=== PATIENT | male | born 1960 | race Caucasian/White ===

== ENCOUNTER 2016-08-04 06:22 | Emergency (ER) | payer BC, OTHER ==
[2016-08-04 06:26] VITALS: BP 136/91
--- NOTE | 2016-08-04 06:43 | EDM.PDOC ---
<Hamzah Fairbanks - Last Filed: 08/04/16 06:55> ED HISTORY OF PRESENT ILLNESS - General Chief Complaint: Respiratory Problem Stated Complaint: COUGH Time Seen by Provider: 08/04/16 06:35 Source of Information: Reports: Patient History Limitations: Reports: No limitations - History of Present Illness INITIAL COMMENTS - FREE TEXT/NARRATIVE: 56 yo white male c/o uri symptoms and this am coughed up blood Symptom Onset Date: 08/04/16 Symptom Onset Time: 22:00 Timing/Duration: Reports: Hour(s):, Gradual onset Location, General: Reports: chest Associated Symptoms (General): Reports: other (sinus congestion) - Related Data Allergies/ADRs: Allergies Allergy/AdvReac Type Severity Reaction Status Date / Time penicillin Allergy Swelling Verified 08/04/16 06:26 Home Meds: Home Meds Aspirin [Adult Low Dose Aspirin EC] 81 mg PO ASDIRECTED 02/06/15 [History] Fenofibrate,Micronized [Fenofibrate] 134 mg PO DAILY 02/06/15 [History] Lisinopril [Lisinopril] 20 mg PO DAILY 02/06/15 [History] Past Medical History Cardiovascular History: Reports: Hypertension - Past Surgical History HEENT Surgical History: Reports: Tonsillectomy GI Surgical History: Reports: Appendectomy, Cholecystectomy Social & Family History - Tobacco Use Smoking Status *Q: Former Smoker Month Tobacco Last Used: 1994 Second Hand Smoke Exposure: No - Alcohol Use Days Per Week of Alcohol Use: 1 Number of Drinks Per Day: 2 Total Drinks Per Week: 2 - Recreational Drug Use Recreational Drug Use: No ED ROS GENERAL - Review of Systems Review Of Systems: See Below Constitutional: Reports: no symptoms HEENT: Reports: Sinus problem Respiratory: Reports: Cough, Hemoptysis Cardiovascular: Reports: No symptoms Endocrine: Reports: no symptoms GI/Abdominal: Reports: No symptoms : Reports: no symptoms Musculoskeletal: Reports: no symptoms Skin: Reports: no symptoms Neurological: Reports: No Symptoms Psychiatric: Reports: No symptoms Hematologic/Lymphatic: Reports: no symptoms Immunologic: Reports: no symptoms ED EXAM, GENERAL - Physical Exam Exam: See Below Exam Limited By: No limitations General Appearance: alert, WD/WN, no apparent distress Eye Exam: bilateral eye: PERRL Ears: normal external exam, normal canal, normal TMs Ear Exam: bilateral ear: TM normal Nose: normal inspection, normal mucosa, no blood Throat/Mouth: Normal inspection, Normal lips, Normal teeth Head: atraumatic, normocephalic Neck: normal inspection, supple, non-tender Respiratory/Chest: no respiratory distress, lungs clear, normal breath sounds Cardiovascular: normal peripheral pulses, regular rate, rhythm GI/Abdominal: normal bowel sounds, soft, non tender Back Exam: normal inspection Extremities: normal inspection, normal range of motion Neurological: alert, oriented, CN II-XII intact Psychiatric: normal affect Skin Exam: Warm, Dry Lymphatic: no adenopathy Course - Vital Signs Last Recorded V/S: Last Vital Signs Temp 96.1 F 08/04/16 06:24 Pulse 58 L 08/04/16 06:24 Resp 20 08/04/16 06:24 BP 136/91 H 08/04/16 06:24 Pulse Ox 99 08/04/16 06:24 - Orders/Labs/Meds Orders: Active Orders 24 hr Category Date Time Status RT Aerosol Therapy [RC] ASDIRECTED Care 08/04/16 06:53 Active CULTURE STREP A CONFIRMATION [] Stat Lab 08/04/16 06:25 Results STREP SCRN A RAPID W CULT CONF [] Stat Lab 08/04/16 06:25 Results Labs: Laboratory Tests 08/04/16 08/04/16 Range/Units 06:52 06:52 WBC 5.9 (5.0-10.0) 10^3/uL RBC 4.94 (4.6-6.2) 10^6/uL Hgb 15.1 (14.0-18.0) g/dL Hct 42.7 (40.0-54.0) % MCV 86.4 (80-100) fL MCH 30.6 (27.0-34.0) pg MCHC 35.4 H (33.0-35.0) g/dL Plt Count 216 (150-450) 10^3/uL Neut % (Auto) 33.5 L (42.2-75.2) % Lymph % (Auto) 43.7 (20.5-50.1) % [place] % (Auto) 21.8 H (2-8) % Eos % (Auto) 1.0 (1.0-3.0) % Baso % (Auto) 0.0 (0.0-1.0) % Add Manual Diff Yes Neutrophils % (Manual) 24 % Lymphocytes % (Manual) 57 % Atypical Lymphs % 3 % Monocytes % (Manual) 13 % Eosinophils % (Manual) 3 % PT 9.8 (9.0-12.0) SEC INR 1.0 (0.9-1.2) Meds: Medications Discontinued Medications Generic Name Dose Route Start Last Admin Trade Name Tierney PRN Reason Stop Dose Admin Albuterol/Ipratropium 3 ml 08/04/16 06:53 Duoneb 3.0-0.5 Mg/3 Ml NEB 08/04/16 06:54 ONETIME ONE Departure - Departure Disposition: Home, Self-Care 01 Clinical Impression: Cough with hemoptysis Instructions: Hemoptysis Forms: ED Department Discharge Additional Instructions: Continue your z-pack until complete as prescribed by your PCP. Keep your nasal passages moist with saline nasal spray a few times a day. Take claritin or zyrtec and flonase to help decrease allergies. Follow up with your PCP in2-3 days for re-evaluation. Return for any worsening symptoms. <Weston Heard - Last Filed: 08/04/16 07:40> Course - Radiology Interpretation Free Text/Narrative:: No acute findings on x-ray. - Re-Assessments/Exams Free Text/Narrative Re-Assessment/Exam: 08/04/16 07:35 Spoke with family and patient who was concerned that the amount of blood he coughed up. States that he saw his PCP who started him on a z-pack over the weekend and he felt like last night he was better and slept better. Encouraged to push fluids, keep nasal passages moist with saline spray and take antihistamine for any allergic type symptoms. Departure - Departure Time of Disposition: 07:36 Condition: good
[2016-08-04] MEDS ORDERED: Albuterol/Ipratropium 3.0-0.5 MG/3 ML Neb Soln NEB ONE (06:53)
== END 2016-08-04 07:50 | disposition home or self-care (01) ==
LOC: DL.ED 06:22
DX: R04.2 Hemoptysis (principal); R09.81 Nasal congestion; Z79.82 Long term (current) use of aspirin; Z79.899 Other long term (current) drug therapy; I10 Essential (primary) hypertension; Z87.891 Personal history of nicotine dependence
CPT/HCPCS: 36415; 71020; 85025; 85610; 87081; 87430; 94640; 99284

== ENCOUNTER 2017-06-11 12:07 | Emergency (ER) | payer BC, OTHER ==
[2017-06-11 12:28] VITALS: BP 157/86
[2017-06-11] MEDS ORDERED: methylPREDNISolone Sodium Succinate 125 MG/2 ML SDV IM ONE (13:10)
--- NOTE | 2017-06-11 13:54 | EDM.PDOC ---
Scribed by Mary Meng 06/11/17 1354 for Jair Wallis MD ED HPI GENERAL MEDICAL PROBLEM - General Chief Complaint: Respiratory Problem Stated Complaint: [id number] BAD COLD Time Seen by Provider: 06/11/17 12:35 Source of Information: Reports: Patient, RN, RN Notes Reviewed History Limitations: Reports: No Limitations - History of Present Illness INITIAL COMMENTS - FREE TEXT/NARRATIVE: Patient complains of 1week productive cough and low grade fever and chills. Admits to generalized myalagis and headache Denies, nausea, vomiting, diarrhea, chills, sore throat or rash. was hospitalized last week for pneumonia. Duration: Getting Worse Location: Reports: Chest, Other (runny nose) Quality: Reports: Ache Severity: Severe Improves with: Reports: None Worsens with: Reports: None Associated Symptoms: Reports: No Other Symptoms Bilateral Chest Pain Score (Numeric/FACES): 8 - Related Data Allergies Allergy/AdvReac Type Severity Reaction Status Date / Time penicillin Allergy Swelling Verified 08/04/16 06:26 Home Meds: Home Meds Aspirin [Adult Low Dose Aspirin EC] 81 mg PO ASDIRECTED 02/06/15 [History] Fenofibrate,Micronized [Fenofibrate] 134 mg PO DAILY 02/06/15 [History] Lisinopril [Lisinopril] 20 mg PO DAILY 02/06/15 [History] Past Medical History Cardiovascular History: Reports: Hypertension - Past Surgical History HEENT Surgical History: Reports: Tonsillectomy GI Surgical History: Reports: Appendectomy, Cholecystectomy Social & Family History - Tobacco Use Smoking Status *Q: Never Smoker Month Tobacco Last Used: 1994 Second Hand Smoke Exposure: No - Caffeine Use Caffeine Use: Reports: Soda - Alcohol Use Days Per Week of Alcohol Use: 1 Number of Drinks Per Day: 2 Total Drinks Per Week: 2 - Recreational Drug Use Recreational Drug Use: No ED ROS GENERAL - Review of Systems Review Of Systems: ROS reveals no pertinent complaints other than HPI. ED EXAM, GENERAL - Physical Exam Exam: See Below Exam Limited By: No Limitations General Appearance: Alert, WD/WN, No Apparent Distress Eye Exam: Bilateral Eye: Normal Inspection Ears: Normal External Exam, Normal Canal, Hearing Grossly Normal, Normal TMs Nose: Other (mild nasal congestion with clear mucus drainage.) Throat/Mouth: Normal Inspection, Normal Lips, Normal Teeth, Normal Gums, Normal Oropharynx, Normal Voice, No Airway Compromise Head: Atraumatic, Normocephalic Neck: Other (no nuchal rigidity.) Respiratory/Chest: No Respiratory Distress, No Accessory Muscle Use, Other ( moist cough) Cardiovascular: Normal Peripheral Pulses, Regular Rate, Rhythm, No Edema, No Gallop, No JVD, No Murmur, No Rub GI/Abdominal: Normal Bowel Sounds, Soft, Non-Tender, No Organomegaly, No Distention, No Abnormal Bruit, No Mass (Male) Exam: Deferred Rectal (Males) Exam: Deferred Back Exam: Normal Inspection, Full Range of Motion, NT Extremities: Normal Inspection, Normal Range of Motion, Non-Tender, Normal Capillary Refill, No Pedal Edema Neurological: Alert, Oriented, CN II-XII Intact, Normal Cognition, Normal Gait, Normal Reflexes, No Motor/Sensory Deficits Psychiatric: Normal Affect Skin Exam: Warm, Dry, Intact, Normal Color, No Rash Lymphatic: No Adenopathy Course - Vital Signs Last Recorded V/S: Last Vital Signs Temp 37.4 C 06/11/17 12:26 Pulse 67 06/11/17 12:26 Resp 16 06/11/17 12:26 BP 157/86 H 06/11/17 12:26 Pulse Ox 98 06/11/17 12:26 - Orders/Labs/Meds Orders: Active Orders 24 hr Category Date Time Status CULTURE STREP A CONFIRMATION [] Stat Lab 06/11/17 12:41 Results STREP SCRN A RAPID W CULT CONF [] Stat Lab 06/11/17 12:41 Results Labs: Rapid strep:Negative. Influzenza A: Positive. Influenza B: Negative Meds: Medications Discontinued Medications Generic Name Dose Route Start Last Admin Trade Name Freq PRN Reason Stop Dose Admin Methylprednisolone Sodium Succinate 125 mg 06/11/17 13:10 06/11/17 13:26 Solu-Medrol IM 06/11/17 13:11 125 mg ONETIME ONE Administration - Radiology Interpretation Free Text/Narrative:: Chest x-ray: No acute abnormality. See rad report. Departure - Departure Time of Disposition: 13:20 Disposition: Home, Self-Care 01 Condition: Fair Clinical Impression: Influenza A - Discharge Information Instructions: Influenza, Adult, [id number] Referrals: Nikkie Morgan PA [Primary Care Provider] - Forms: ED Department Discharge, ED Department Discharge Additional Instructions: RX: Prednisone 20mg. RX: Phenergan with codeine. Drink plenty of fluids. Rest. Follow up in clinic if not improving in 7-10 days. Return to ER if any respiratory difficulties develop. - My Orders Last 24 Hours: My Active Orders 06/11/17 12:41 CULTURE STREP A CONFIRMATION [RM] Stat STREP SCRN A RAPID W CULT CONF [RM] Stat - Assessment/Plan Last 24 Hours: My Active Orders 06/11/17 12:41 CULTURE STREP A CONFIRMATION [RM] Stat STREP SCRN A RAPID W CULT CONF [RM] Stat I have read and agree with the documentation that has been completed regarding this visit. By signing this record, I attest that the documentation was completed in my physical presence and is an accurate record of the encounter.
== END 2017-06-11 13:37 | disposition home or self-care (01) ==
LOC: DL.ED 12:07
DX: J10.1 Influenza due to other identified influenza virus with other respiratory manifestations (principal); I10 Essential (primary) hypertension; Z79.899 Other long term (current) drug therapy; Z88.0 Allergy status to penicillin
CPT/HCPCS: 71046; 87081; 87430; 87804; 96372; 99284; J2930

== ENCOUNTER 2018-08-03 19:50 | Emergency (ER) | payer BC ==
[2018-08-03] MEDS ORDERED: Acetaminophen/HYDROcodone 325-10 MG Tab PO ONE (19:51)
[2018-08-03 19:56] VITALS: BP 147/85
--- NOTE | 2018-08-03 20:11 | EDM.PDOC ---
ED HPI GENERAL MEDICAL PROBLEM - General Chief Complaint: Lower Extremity Injury/Pain Stated Complaint: FOOT PAIN Time Seen by Provider: 08/03/18 20:08 Source of Information: Reports: Patient History Limitations: Reports: No Limitations - History of Present Illness INITIAL COMMENTS - FREE TEXT/NARRATIVE: 3 weeks h/o left heel pain saw PMD thought was infection Tx with ABX did get better but gradually pain return only when steps onto foot. otherwise it's fine. 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 Left Feet Pain Score (Numeric/FACES): 10 - Related Data Allergies Allergy/AdvReac Type Severity Reaction Status Date / Time penicillin Allergy Swelling Verified 08/04/16 06:26 Home Meds: Home Meds Aspirin [Adult Low Dose Aspirin EC] 81 mg PO ASDIRECTED 02/06/15 [History] Fenofibrate,Micronized [Fenofibrate] 134 mg PO DAILY 02/06/15 [History] Albuterol/Ipratropium [Combivent Respimat] 1 inh INH ASDIRECTED 08/03/18 [ History] Losartan Potassium 100 mg PO DAILY 08/03/18 [History] Past Medical History Cardiovascular History: Reports: Hypertension Respiratory History: Reports: Pneumonia, Recurrent - Past Surgical History HEENT Surgical History: Reports: Tonsillectomy GI Surgical History: Reports: Appendectomy, Cholecystectomy Social & Family History - Family History Family Medical History: Noncontributory - Tobacco Use Smoking Status *Q: Never Smoker - Caffeine Use Caffeine Use: Reports: Soda - Recreational Drug Use Recreational Drug Use: No Review of Systems - Review of Systems Review Of Systems: ROS reveals no pertinent complaints other than HPI. ED EXAM, GENERAL - Physical Exam Exam: See Below Exam Limited By: No Limitations General Appearance: Alert, WD/WN, No Apparent Distress Ears: Hearing Grossly Normal Throat/Mouth: Normal Voice, No Airway Compromise Head: Atraumatic Neck: Non-Tender, Full Range of Motion Respiratory/Chest: No Respiratory Distress Cardiovascular: Regular Rate, Rhythm GI/Abdominal: Soft, Non-Tender Extremities: Other (left heel no s/s cellutitis, no gross D/D, NV wnl, gait limited to pain) Neurological: Alert, Oriented, Normal Cognition, No Motor/Sensory Deficits Psychiatric: Normal Affect, Normal Mood Skin Exam: Warm, Dry, Normal Color Lymphatic: No Adenopathy Course - Vital Signs Last Recorded V/S: Last Vital Signs Temp 36.1 C 08/03/18 19:55 Pulse 73 08/03/18 19:55 Resp 18 08/03/18 19:55 BP 147/85 H 08/03/18 19:55 Pulse Ox 97 08/03/18 19:55 - Re-Assessments/Exams Free Text/Narrative Re-Assessment/Exam: 08/03/18 21:16 results discussed with pt who states he has appt with PMD tomorrow. Departure - Departure Time of Disposition: 21:18 Disposition: Home, Self-Care 01 Condition: Good Clinical Impression: Heel pain Qualifiers: Laterality: left Qualified Code(s): M79.672 - Pain in left foot - Discharge Information Instructions: Foot Pain Forms: ED Department Discharge Additional Instructions: 1) see family doctor tomorrow for PODIATRY REFERRAL for possible plantar wart to heel rx luisa smith x1
[2018-08-03] MEDS ORDERED: Acetaminophen/HYDROcodone 325-5 MG Tab ONE (21:20)
== END 2018-08-03 21:24 | disposition home or self-care (01) ==
LOC: DL.ED 19:50
DX: M79.672 Pain in left foot (principal); I10 Essential (primary) hypertension; Z79.82 Long term (current) use of aspirin; Z88.0 Allergy status to penicillin; Z79.899 Other long term (current) drug therapy
CPT/HCPCS: 73620; 99283; A9270

== ENCOUNTER 2019-05-07 15:54 | Emergency (ER) | payer BC ==
[2019-05-07] MEDS ORDERED: Nitroglycerin 0.4 MG Tab.SL SL ONE (16:29)
[2019-05-07 16:39] VITALS: BP 107/65; PULSE 64
[2019-05-07 16:42] LABS: ANION GAP 14.1; CHLORIDE,CL 103 mmol/L (101-111); SODIUM,NA 136 mmol/L (135-145)
[2019-05-07] MEDS ORDERED: Heparin Sodium 5,000 Units/ML Vial IVPUSH ONE (17:11)
[2019-05-07] MEDS ORDERED: Heparin Sodium/0.45% NaCl 25,000 UNITS/500 ML BAG IV SCH (17:15)
--- NOTE | 2019-05-25 11:42 | EDM.PDOC ---
Scribed by Mary Meng 05/07/191958 for May Ellison NP ED HPI GENERAL MEDICAL PROBLEM - General Chief Complaint: Chest Pain Stated Complaint: CRITICAL Time Seen by Provider: 05/07/19 16:18 Source of Information: Reports: Patient, Provider, RN, RN Notes Reviewed History Limitations: Reports: No Limitations - History of Present Illness INITIAL COMMENTS - FREE TEXT/NARRATIVE: patient presents to ER from the clinic with complaint of chest pain. 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 Patient states he ate lunch, and the pain did not improve so he went to the clinic. Patient relates chest pain 10/16. Denies any shortness of breath, nausea, vomiting. Patient denies any previous cardiovascular problems. Onset: Today, Sudden Duration: Constant, Getting Worse, Heavy Location: Reports: Chest Quality: Reports: Pressure, Stabbing Severity: Moderate Improves with: Reports: None Worsens with: Reports: None Associated Symptoms: Reports: No Other Symptoms - Related Data Allergies Allergy/AdvReac Type Severity Reaction Status Date / Time penicillin Allergy Swelling Verified 05/07/19 16:12 Home Meds: Home Meds Aspirin [Adult Low Dose Aspirin EC] 81 mg PO ASDIRECTED 02/06/15 [History] Fenofibrate,Micronized [Fenofibrate] 134 mg PO DAILY 02/06/15 [History] Albuterol/Ipratropium [Combivent Respimat] 1 inh INH ASDIRECTED 08/03/18 [ History] Losartan Potassium 100 mg PO DAILY 08/03/18 [History] Past Medical History Cardiovascular History: Reports: Hypertension Respiratory History: Reports: Pneumonia, Recurrent - Past Surgical History HEENT Surgical History: Reports: Tonsillectomy GI Surgical History: Reports: Appendectomy, Cholecystectomy Social & Family History - Family History Family Medical History: Noncontributory - Caffeine Use Caffeine Use: Reports: Soda ED ROS GENERAL - Review of Systems Review Of Systems: Comprehensive ROS is negative, except as noted in HPI. ED EXAM, GENERAL - Physical Exam Exam: See Below Exam Limited By: No Limitations General Appearance: Alert, WD/WN, No Apparent Distress Eye Exam: Bilateral Eye: EOMI, Normal Inspection Ears: Normal External Exam, Hearing Grossly Normal Nose: Normal Inspection Throat/Mouth: Normal Inspection, Normal Voice, No Airway Compromise Head: Atraumatic, Normocephalic Neck: Normal Inspection, Supple, Non-Tender, Full Range of Motion Respiratory/Chest: No Respiratory Distress, Lungs Clear, Normal Breath Sounds, No Accessory Muscle Use, Chest Non-Tender Cardiovascular: Normal Peripheral Pulses, Regular Rate, Rhythm, No Edema, No Gallop, No JVD, No Murmur, No Rub Peripheral Pulses: 2+: Radial (L), Radial (R) GI/Abdominal: Normal Bowel Sounds, Soft, Non-Tender, No Organomegaly, No Distention, No Abnormal Bruit, No Mass (Male) Exam: Deferred Rectal (Males) Exam: Deferred Back Exam: Normal Inspection, Full Range of Motion, NT Extremities: Normal Inspection, Normal Range of Motion, Non-Tender, Normal Capillary Refill, No Pedal Edema Neurological: Alert, Oriented, CN II-XII Intact, Normal Cognition, Normal Gait, Normal Reflexes, No Motor/Sensory Deficits Psychiatric: Normal Affect, Normal Mood Skin Exam: Warm, Dry, Intact, Normal Color, No Rash Lymphatic: No Adenopathy Course - Vital Signs Last Recorded V/S: Last Vital Signs Temp 97.8 F 05/07/19 16:34 Pulse 64 05/07/19 16:38 Resp 16 05/07/19 16:34 BP 107/65 05/07/19 16:38 Pulse Ox 98 05/07/19 16:34 - Orders/Labs/Meds Labs: Laboratory Tests 05/07/19 05/07/19 05/07/19 Range/Units 16:01 16:01 16:01 WBC 12.9 H (5.0-10.0) 10^3/uL RBC 5.36 (4.6-6.2) 10^6/uL Hgb 16.2 (14.0-18.0) g/dL Hct 45.7 (40.0-54.0) % MCV 85.3 (80-100) fL MCH 30.2 (27.0-34.0) pg MCHC 35.4 H (33.0-35.0) g/dL Plt Count 281 (150-450) 10^3/uL Neut % (Auto) 71.8 (42.2-75.2) % Lymph % (Auto) 15.6 L (20.5-50.1) % [place] % (Auto) 11.2 H (2-8) % Eos % (Auto) 1.2 (1.0-3.0) % Baso % (Auto) 0.2 (0.0-1.0) % PT 9.9 (9.0-12.0) SEC INR 1.0 (0.9-1.2) Sodium 136 (135-145) mmol/L Potassium 4.1 (3.6-5.0) mmol/L Chloride 103 (101-111) mmol/L Carbon Dioxide 23.0 (21.0-31.0) mmol/L Anion Gap 14.1 BUN 16 (7-18) mg/dL Creatinine 1.1 (0.6-1.3) mg/dL Est Cr Clr Drug Dosing 66.06 mL/min Estimated GFR (MDRD) > 60 BUN/Creatinine Ratio 14.54 Glucose 97 (74-105) mg/dL Calcium 9.3 (8.4-10.2) mg/dl Total Bilirubin 1.2 H (0.2-1.0) mg/dL AST 67 H (10-42) IU/L ALT 37 (10-60) IU/L Alkaline Phosphatase 65 (42-121) IU/L Troponin I 4.13 H* (0.00-0.02) ng/ml Total Protein 7.8 (6.7-8.2) g/dl Albumin 4.6 (3.2-5.5) g/dl Globulin 3.2 Albumin/Globulin Ratio 1.44 Meds: Medications Discontinued Medications Generic Name Dose Route Start Last Admin Trade Name Freq PRN Reason Stop Dose Admin Heparin Sodium (Porcine) 4,000 units 05/07/19 17:11 05/07/19 17:23 Heparin Sodium IVPUSH 05/07/19 17:12 4,000 units .BOLUS ONE Administration Heparin Sodium/Sodium Chloride 25,000 units in 500 mls @ 23.079 mls/hr 17:15 05/07/19 17:23 Heparin 25,000 Units In 1/2 Ns 500 Ml IV 12 units/kg/hr TITRATE ALY 23.079 mls/hr Administration Protocol 12 UNITS/KG/HR Nitroglycerin 0.4 mg 05/07/19 16:29 05/07/19 16:37 Nitrostat SL 05/07/19 16:30 0.4 mg Q5M ONE Administration - Radiology Interpretation Free Text/Narrative:: chest xray: FINDINGS: Tubes, catheters and devices: EKG leads overlie the chest. Lungs: The lungs are normal. Pleural space: There are no pleural effusions present. Heart/Mediastinum: The heart demonstrates mild diffuse enlargement. The pulmonary arteries are not enlarged. Bones/joints: Unremarkable IMPRESSION: Mild cardiomegaly. Thank you for allowing us to participate in the care of your patient. Dictated and Authenticated by: Collins Julian MD 05/07/2019 4:33 PM Central Time ([place] & [place]) See rad report Departure - Departure Time of Disposition: 17:48 Disposition: DC/Tfer to Acute Hospital 02 Reason for Transfer *Q: Other Condition: Fair Clinical Impression: NSTEMI (non-ST elevated myocardial infarction) Referrals: PCP,Unobtain [Primary Care Provider] - Forms: ED Department Discharge, Interfacility Transfer ROMMEL Sepsis Event Note - Focused Exam Date Exam was Performed: 05/25/19 Time Exam was Performed: 11:37 I have read and agree with the documentation that has been completed regarding this visit. By signing this record, I attest that the documentation was completed in my physical presence and is an accurate record of the encounter.
== END 2019-05-07 17:50 ==
LOC: DL.ED 15:54
DX: I21.4 Non-ST elevation (NSTEMI) myocardial infarction (principal); I10 Essential (primary) hypertension; Z88.0 Allergy status to penicillin; Z79.82 Long term (current) use of aspirin; Z79.899 Other long term (current) drug therapy
CPT/HCPCS: 36415; 71045; 80053; 84484; 85025; 85610; 93005; 96374; 99285; A9270; J1644

== ENCOUNTER 2020-04-16 23:56 | Emergency (ER) | payer BC ==
[2020-04-17 00:16] VITALS: BP 129/86; PULSE 63
[2020-04-17] MEDS ORDERED: Aspirin 81 MG Tab.Chew PO ONE (00:38)
[2020-04-17] MEDS ORDERED: Aspirin 81 MG Tab.Chew ONE (00:44)
[2020-04-17 00:54] LABS: ANION GAP 11.4 mEq/L (7-13); CHLORIDE,CL 103 mmol/L (98-107); SODIUM,NA 139 mmol/L (136-145)
--- NOTE | 2020-04-17 00:59 | EDM.PDOC ---
ED HPI GENERAL MEDICAL PROBLEM - General Chief Complaint: Chest Pain Stated Complaint: COUGH,SOB Time Seen by Provider: 04/17/20 00:45 Source of Information: Reports: Patient History Limitations: Reports: No Limitations - History of Present Illness INITIAL COMMENTS - FREE TEXT/NARRATIVE: This 59 yo male patient reports to the ED with chest pain. The patient reports his chest pain started at about 2100 last night. The patient reports he had just eaten and was lying on his side watching TV when his symptoms started. The patient reports his chest pain was gone at the time of examination. The patient reports he had a heart attack last April. Onset Date: 04/16/20 Onset Time: 21:00 Duration: Constant Location: Reports: Chest Quality: Reports: Ache, Burning Severity: Moderate Improves with: Reports: None Worsens with: Reports: None Context: Reports: Other Associated Symptoms: Reports: No Other Symptoms Mid-Sternal Pain Score (Numeric/FACES): 6 - Related Data Allergies Allergy/AdvReac Type Severity Reaction Status Date / Time penicillin Allergy Swelling Verified 04/17/20 00:07 Home Meds: Home Meds Aspirin [Adult Low Dose Aspirin EC] 81 mg PO ASDIRECTED 02/06/15 [History] Fenofibrate,Micronized [Fenofibrate] 134 mg PO DAILY 02/06/15 [History] Albuterol/Ipratropium [Combivent Respimat] 1 inh INH ASDIRECTED 08/03/18 [History] Losartan Potassium 100 mg PO DAILY 08/03/18 [History] Clopidogrel [Plavix] 75 mg PO DAILY 04/17/20 [History] atorvaSTATin [Lipitor] 40 mg PO DAILY 04/17/20 [History] Past Medical History Cardiovascular History: Reports: Hypertension, Other (See Below) Other Cardiovascular History: NSTEMI Apr 3 stints placed Respiratory History: Reports: Pneumonia, Recurrent Genitourinary History: Reports: None Musculoskeletal History: Reports: None Neurological History: Reports: None Psychiatric History: Reports: None Endocrine/Metabolic History: Reports: None Hematologic History: Reports: None Immunologic History: Reports: None Oncologic (Cancer) History: Reports: None Dermatologic History: Reports: None - Infectious Disease History Infectious Disease History: Reports: Measles - Past Surgical History Head Surgeries/Procedures: Reports: None HEENT Surgical History: Reports: Tonsillectomy GI Surgical History: Reports: Appendectomy, Cholecystectomy Social & Family History - Family History Family Medical History: No Pertinent Family History - Tobacco Use Tobacco Use Status *Q: Never Tobacco User - Caffeine Use Caffeine Use: Reports: Soda - Recreational Drug Use Recreational Drug Use: No ED ROS GENERAL - Review of Systems Review Of Systems: Comprehensive ROS is negative, except as noted in HPI. ED EXAM, GENERAL - Physical Exam Exam: See Below Exam Limited By: No Limitations General Appearance: Alert, WD/WN, Anxious Eye Exam: Bilateral Eye: EOMI, Normal Inspection, PERRL Ears: Normal External Exam, Normal Canal, Hearing Grossly Normal, Normal TMs Nose: Normal Inspection, Normal Mucosa, No Blood Throat/Mouth: Normal Inspection, Normal Lips, Normal Teeth, Normal Gums, Normal Oropharynx, Normal Voice, No Airway Compromise Head: Atraumatic, Normocephalic Neck: Normal Inspection, Supple, Non-Tender, Full Range of Motion Respiratory/Chest: No Respiratory Distress, Lungs Clear, Normal Breath Sounds, No Accessory Muscle Use, Chest Non-Tender Cardiovascular: Normal Peripheral Pulses, Regular Rate, Rhythm, No Edema, No Gallop, No JVD, No Murmur, No Rub GI/Abdominal: Normal Bowel Sounds, Soft, Non-Tender, No Organomegaly, No Distention, No Abnormal Bruit, No Mass (Male) Exam: Deferred Rectal (Males) Exam: Deferred Back Exam: Normal Inspection, Full Range of Motion, NT Extremities: Normal Inspection, Normal Range of Motion, Non-Tender, Normal Capillary Refill, No Pedal Edema Neurological: Alert, Oriented, CN II-XII Intact, Normal Cognition, Normal Gait, Normal Reflexes, No Motor/Sensory Deficits Psychiatric: Normal Affect, Normal Mood Skin Exam: Warm, Dry, Intact, Normal Color, No Rash Lymphatic: No Adenopathy Course - Vital Signs Last Recorded V/S: Last Vital Signs Temp 36.8 C 04/17/20 00:07 Pulse 63 04/17/20 00:07 Resp 16 04/17/20 00:07 BP 129/86 04/17/20 00:07 Pulse Ox 95 04/17/20 00:07 - Orders/Labs/Meds Orders: Active Orders 24 hr Category Date Time Status EKG 12 Lead [EKG Documentation Completion] [RC] URGENT Care 04/17/20 00:07 Active Labs: Laboratory Tests 04/17/20 04/17/2020 Range/Units 00:14 00:14 00:14 WBC 8.7 (5.0-10.0) 10^3/uL RBC 4.92 (4.6-6.2) 10^6/uL Hgb 15.5 (14.0-18.0) g/dL Hct 44.3 (40.0-54.0) % MCV 90.0 D (80-100) fL MCH 31.5 (27.0-34.0) pg MCHC 35.0 (33.0-35.0) g/dL Plt Count 243 (150-450) 10^3/uL Neut % (Auto) 52.0 (42.2-75.2) % Lymph % (Auto) 28.3 (20.5-50.1) % [place] % (Auto) 16.8 H (2-8) % Eos % (Auto) 2.6 (1.0-3.0) % Baso % (Auto) 0.3 (0.0-1.0) % D-Dimer, Quantitative 118 (0-400) ng/mL Sodium 139 (136-145) mmol/L Potassium 3.4 L (3.5-5.1) mmol/L Chloride 103 (98-107) mmol/L Carbon Dioxide 28 (21-32) mmol/L Anion Gap 11.4 (7-13) mEq/L BUN 21 H (7-18) mg/dL Creatinine 1.29 (0.70-1.30) mg/dL Est Cr Clr Drug Dosing 55.64 mL/min Estimated GFR (MDRD) 57 BUN/Creatinine Ratio 16.3 (No establ ref range) Glucose 102 H (74-99) mg/dL Calcium 9.3 (8.5-10.1) mg/dL Total Bilirubin 0.4 (0.2-1.0) mg/dL AST 16 (15-37) U/L ALT 46 (16-63) U/L Alkaline Phosphatase 62 (46-116) U/L Troponin I < 0.017 (0.000-0.056) ng/mL Total Protein 6.8 (6.4-8.2) g/dL Albumin 3.9 (3.4-5.0) g/dL Globulin 2.9 Albumin/Globulin Ratio 1.3 SARS-CoV-2 RNA (YANCY) (NEGATIVE) 04/17/20 Range/Units 00:38 WBC (5.0-10.0) 10^3/uL RBC (4.6-6.2) 10^6/uL Hgb (14.0-18.0) g/dL Hct (40.0-54.0) % MCV (80-100) fL MCH (27.0-34.0) pg MCHC (33.0-35.0) g/dL Plt Count (150-450) 10^3/uL Neut % (Auto) (42.2-75.2) % Lymph % (Auto) (20.5-50.1) % [place] % (Auto) (2-8) % Eos % (Auto) (1.0-3.0) % Baso % (Auto) (0.0-1.0) % D-Dimer, Quantitative (0-400) ng/mL Sodium (136-145) mmol/L Potassium (3.5-5.1) mmol/L Chloride (98-107) mmol/L Carbon Dioxide (21-32) mmol/L Anion Gap (7-13) mEq/L BUN (7-18) mg/dL Creatinine (0.70-1.30) mg/dL Est Cr Clr Drug Dosing mL/min Estimated GFR (MDRD) BUN/Creatinine Ratio (No establ ref range) Glucose (74-99) mg/dL Calcium (8.5-10.1) mg/dL Total Bilirubin (0.2-1.0) mg/dL AST (15-37) U/L ALT (16-63) U/L Alkaline Phosphatase (46-116) U/L Troponin I (0.000-0.056) ng/mL Total Protein (6.4-8.2) g/dL Albumin (3.4-5.0) g/dL Globulin Albumin/Globulin Ratio SARS-CoV-2 RNA (YANCY) Negative (NEGATIVE) Meds: Medications Discontinued Medications Generic Name Dose Route Start Last Admin Trade Name Freq PRN Reason Stop Dose Admin Aspirin 324 mg 04/17/20 00:38 04/17/20 00:42 Aspirin PO 04/17/20 00:39 324 mg ONETIME ONE Administration Aspirin Confirm 04/17/20 00:44 04/17/20 00:48 Aspirin Administered 04/17/20 00:45 Not Given Dose 324 mg .ROUTE .STK-MED ONE Departure - Departure Time of Disposition: 01:18 Disposition: Home, Self-Care 01 Condition: Fair Clinical Impression: GERD (gastroesophageal reflux disease) Qualifiers: Esophagitis presence: esophagitis presence not specified Qualified Code(s): K21.9 - Gastro-esophageal reflux disease without esophagitis Instructions: Gastroesophageal Reflux Disease, Adult, [id number] Forms: ED Department Discharge Care Plan Goals: The patient was advised of the examination, lab and EKG results during the visit. If the patient has any additional symptoms or concerns, the patient should follow-up with her primary care facility or return to the emergency department. Sepsis Event Note (ED) - Evaluation Sepsis Screening Result: No Definite Risk - Focused Exam Vital Signs: Vital Signs Temp Pulse Resp BP Pulse Ox 04/17/20 00:07 36.8 C 63 16 129/86 95 - My Orders Last 24 Hours: My Active Orders 04/17/20 00:07 EKG 12 Lead [EKG Documentation Completion] [RC] URGENT - Assessment/Plan Last 24 Hours: My Active Orders 04/17/20 00:07 EKG 12 Lead [EKG Documentation Completion] [RC] URGENT
== END 2020-04-17 01:27 | disposition home or self-care (01) ==
LOC: DL.ED 23:56
DX: K21.9 Gastro-esophageal reflux disease without esophagitis (principal); I10 Essential (primary) hypertension; Z79.82 Long term (current) use of aspirin; Z79.02 Long term (current) use of antithrombotics/antiplatelets; Z79.899 Other long term (current) drug therapy; Z88.0 Allergy status to penicillin; Z20.828 Contact with and (suspected) exposure to other viral communicable diseases
CPT/HCPCS: 36415; 80053; 84484; 85025; 85379; 93005; 93010; 99283; 99285-25; A9270-GY; U0002

== ENCOUNTER 2021-01-14 16:39 | Emergency (ER) | payer BC, OTHER ==
[2021-01-14] MEDS ORDERED: Sodium Chloride 0.9% 10 ML Syringe FLUSH PRN (16:56)
[2021-01-14 17:12] VITALS: BP 119/79; PULSE 67
--- NOTE | 2021-01-14 17:22 | EDM.PDOC ---
ED HPI GENERAL MEDICAL PROBLEM - General Chief Complaint: Chest Pain Stated Complaint: RUNNY NOSE, COUGH, TIGHT CHEST Time Seen by Provider: 01/14/21 17:16 Source of Information: Reports: Patient History Limitations: Reports: No Limitations - History of Present Illness INITIAL COMMENTS - FREE TEXT/NARRATIVE: 60 y/o M c/o cough, fever, runny nose and chest tightness that began last night. Pt rates CP a /. Pt states he got his usual chest tightness from GERD and took tums and the pain went away last night. Pt awoke in the middle of the night with sore throat and cough. When pt got up this morning he felt feverish. Denies db, abd pn, NVD, extremity pn. Hx of NE in 2013. Pain today is not similar to NE pain Duration: Hour(s): Location: Reports: Head, Neck, Chest Quality: Reports: Other (tightness in chest. Soreness in throat.) Chest Pain Score (Numeric/FACES): 4 - Related Data Allergies Allergy/AdvReac Type Severity Reaction Status Date / Time penicillin Allergy Swelling Verified 01/14/21 17:12 Home Meds: Home Meds Aspirin [Adult Low Dose Aspirin EC] 81 mg PO ASDIRECTED 02/06/15 [History] Fenofibrate,Micronized [Fenofibrate] 134 mg PO DAILY 02/06/15 [History] Albuterol/Ipratropium [Combivent Respimat] 1 inh INH ASDIRECTED 08/03/18 [History] Losartan Potassium 100 mg PO DAILY 08/03/18 [History] Clopidogrel [Plavix] 75 mg PO DAILY 04/17/20 [History] atorvaSTATin [Lipitor] 40 mg PO DAILY 04/17/20 [History] Past Medical History Cardiovascular History: Reports: Hypertension, Other (See Below) Other Cardiovascular History: NSTEMI Apr 3 stints placed Respiratory History: Reports: Pneumonia, Recurrent Genitourinary History: Reports: None Musculoskeletal History: Reports: None Neurological History: Reports: None Psychiatric History: Reports: None Endocrine/Metabolic History: Reports: None Hematologic History: Reports: None Immunologic History: Reports: None Oncologic (Cancer) History: Reports: None Dermatologic History: Reports: None - Infectious Disease History Infectious Disease History: Reports: Measles - Past Surgical History Head Surgeries/Procedures: Reports: None HEENT Surgical History: Reports: Tonsillectomy GI Surgical History: Reports: Appendectomy, Cholecystectomy Social & Family History - Family History Family Medical History: No Pertinent Family History - Caffeine Use Caffeine Use: Reports: Soda ED ROS GENERAL - Review of Systems Review Of Systems: Comprehensive ROS is negative, except as noted in HPI. ED EXAM, GENERAL - Physical Exam Exam: See Below Exam Limited By: No Limitations General Appearance: Alert Eye Exam: Bilateral Eye: PERRL Nose: Normal Inspection Throat/Mouth: Normal Inspection, Normal Oropharynx, Normal Voice Neck: Supple, Non-Tender Respiratory/Chest: No Respiratory Distress, Lungs Clear Cardiovascular: Normal Peripheral Pulses, Regular Rate, Rhythm GI/Abdominal: Soft, Non-Tender #1 Interpretation EKG Date: 01/14/21 Time: 16:52 Rhythm: Other (sinus) [place]: LAD-Left [place] Deviation P-Wave: Present QRS: Normal ST-T: Depressed QT: Normal Course - Vital Signs Last Recorded V/S: Last Vital Signs Temp 99.2 F 01/14/21 17:05 Pulse 67 01/14/21 17:05 Resp 14 01/14/21 17:05 BP 119/79 01/14/21 17:05 Pulse Ox 95 01/14/21 17:05 - Orders/Labs/Meds Orders: Active Orders 24 hr Category Date Time Status Peripheral IV Care [RC] . DIRECTED Care 01/14/21 16:56 Active B-TYPE NATRIURETIC PEPTIDE,BNP [CHEM] Stat Lab 01/14/21 16:59 Results COMPREHENSIVE METABOLIC PN,CMP [CHEM] Stat Lab 01/14/21 16:59 Results CULTURE BLOOD [BC] Stat Lab 01/14/21 17:05 Ordered CULTURE BLOOD [BC] Stat Lab 01/14/21 17:05 Ordered INFLUENZA A+B AG SCREEN [RM] Stat Lab 01/14/21 17:05 Ordered LIPASE [CHEM] Stat Lab 01/14/21 16:59 Results MAGNESIUM [CHEM] Stat Lab 01/14/21 16:59 Results STREP SCRN A RAPID W CULT CONF [RM] Stat Lab 01/14/21 17:04 Ordered TROPONIN I HIGH SENSITIVITY [CHEM] Stat Lab 01/14/21 16:59 Results Sodium Chloride 0.9% [Saline Flush] Med 01/14/21 16:56 Active 10 ml FLUSH ASDIRECTED PRN Blood Culture x2 Reflex Set [OM.PC] Stat Oth 01/14/21 17:04 Ordered Isolation [COMM] Routine Ot 01/14/21 17:05 Active Peripheral IV Insertion Adult [OM.PC] Stat [facility] 01/14/21 16:56 Ordered Medication Orders Sodium Chloride (Sodium Chloride 0.9% 10 Ml Syringe) 10 ml FLUSH ASDIRECTED PRN PRN Reason: Keep Vein Open Labs: Laboratory Tests 01/14/21 01/14/21 01/14/21 Range/Units 16:59 16:59 16:59 WBC 6.8 (5.0-10.0) 10^3/uL RBC 5.06 (4.6-6.2) 10^6/uL Hgb 15.4 (14.0-18.0) g/dL Hct 44.6 (40.0-54.0) % MCV 88.1 (80-100) fL MCH 30.4 (27.0-34.0) pg MCHC 34.5 (33.0-35.0) g/dL Plt Count 236 (150-450) 10^3/uL Neut % (Auto) 66.9 (42.2-75.2) % Lymph % (Auto) 11.2 L (20.5-50.1) % [place] % (Auto) 19.4 H (2-8) % Eos % (Auto) 2.4 (1.0-3.0) % Baso % (Auto) 0.1 (0.0-1.0) % PT 10.4 (9.0-12.0) SEC INR 1.0 (0.9-1.2) APTT 23.4 (22.0-34.0) SEC Lactic Acid (0.4-2.0) mmol/L B-Natriuretic Peptide 27 (0-100) pg/ml SARS-CoV-2 RNA (YANCY) (NEGATIVE) 01/14/21 01/14/21 Range/Units 16:59 17:02 WBC (5.0-10.0) 10^3/uL RBC (4.6-6.2) 10^6/uL Hgb (14.0-18.0) g/dL Hct (40.0-54.0) % MCV (80-100) fL MCH (27.0-34.0) pg MCHC (33.0-35.0) g/dL Plt Count (150-450) 10^3/uL Neut % (Auto) (42.2-75.2) % Lymph % (Auto) (20.5-50.1) % [place] % (Auto) (2-8) % Eos % (Auto) (1.0-3.0) % Baso % (Auto) (0.0-1.0) % PT (9.0-12.0) SEC INR (0.9-1.2) APTT (22.0-34.0) SEC Lactic Acid 1.4 (0.4-2.0) mmol/L B-Natriuretic Peptide (0-100) pg/ml SARS-CoV-2 RNA (YANCY) Positive H (NEGATIVE) Meds: Medications Generic Name Dose Route Start Last Admin Trade Name Freq PRN Reason Stop Dose Admin Sodium Chloride 10 ml 01/14/21 16:56 Sodium Chloride 0.9% 10 Ml Syringe FLUSH ASDIRECTED PRN Keep Vein Open - Re-Assessments/Exams Free Text/Narrative Re-Assessment/Exam: 01/14/21 18:02 Discussed pts exam, covid results, lab results, and EKG. Informed him that he is COvid Positive and needs to isolate at home until the . Departure - Departure Time of Disposition: 18:05 Disposition: Home, Self-Care 01 Condition: Fair Clinical Impression: COVID Instructions: COVID-19: What to Do if You Are Sick - [facility] (05/08/2020) Forms: ED Department Discharge Additional Instructions: RX: Prednisone RX: Zyrtec Use tylenol or motrin for fever and pain as needed. Isolate at home until the of this month. If any new symptms or concerns develop contact your primary care physician or return to the ER. Sepsis Event Note (ED) - Focused Exam Vital Signs: Vital Signs Temp Pulse Resp BP Pulse Ox 01/14/21 17:05 99.2 F 67 14 119/79 95
--- NOTE | 2021-01-14 17:40 | CR ---
PROCEDURE INFORMATION: Exam: XR Chest Exam date and time: 01/14/2021 5:12 PM Age: 60 years old Clinical indication: Pain; Left-sided; Additional info: Chest pain TECHNIQUE: Imaging protocol: XR of the chest. Views: 1 view. COMPARISON: CR Chest 1V Frontal 05/07/2019 4:26 PM FINDINGS: Lungs: Unremarkable. No consolidation. Pleural spaces: Unremarkable. No pleural effusion. No pneumothorax. Heart/Mediastinum: Unremarkable. No cardiomegaly. Bones/joints: Unremarkable. IMPRESSION: No acute findings.
[2021-01-14 17:41] LABS: PTT,PARTIAL THROMBOPLSTIN TIME 23.4 SEC (22.0-34.0)
[2021-01-14 18:08] LABS: ANION GAP 18.7 mEq/L (7-13); CHLORIDE,CL 104 mmol/L (98-107); SODIUM,NA 141 mmol/L (136-145)
== END 2021-01-14 18:23 | disposition home or self-care (01) ==
LOC: DL.ED 16:39
DX: U07.1 COVID-19 (principal); I10 Essential (primary) hypertension; Z79.82 Long term (current) use of aspirin; Z79.02 Long term (current) use of antithrombotics/antiplatelets; Z79.899 Other long term (current) drug therapy; Z88.0 Allergy status to penicillin
CPT/HCPCS: 36415; 71045; 80053; 83605; 83690; 83735; 83880; 84484; 85025; 85610; 85730; 87081; 87430; 87804; 93005; 99285-25; U0002

== ENCOUNTER 2021-04-09 18:54 | Emergency (ER) | payer BC, OTHER ==
[2021-04-09 19:19] VITALS: BP 136/70; PULSE 88
[2021-04-09 19:56] LABS: CORONAVIRUS COVID-19 NAA NEGATIVE (NEGATIVE)
--- NOTE | 2021-04-09 20:33 | EDM.PDOC ---
ED HPI GENERAL MEDICAL PROBLEM - General Chief Complaint: Respiratory Problem Stated Complaint: 97.2*, COUGH, RUNNY NOSE, SORE THROAT Time Seen by Provider: 04/09/21 20:00 Source of Information: Reports: Patient History Limitations: Reports: No Limitations - History of Present Illness INITIAL COMMENTS - FREE TEXT/NARRATIVE: ED with c/o cough congestion post nasal drainage sore throat, cough productive clear phlegm, COVID in January - Related Data Allergies Allergy/AdvReac Type Severity Reaction Status Date / Time penicillin Allergy Swelling Verified 04/09/21 19:19 Home Meds: Home Meds Aspirin [Adult Low Dose Aspirin EC] 81 mg PO ASDIRECTED 02/06/15 [History] Fenofibrate,Micronized [Fenofibrate] 134 mg PO DAILY 02/06/15 [History] Albuterol/Ipratropium [Combivent Respimat] 1 inh INH ASDIRECTED 08/03/18 [History] Losartan Potassium 100 mg PO DAILY 08/03/18 [History] Clopidogrel [Plavix] 75 mg PO DAILY 04/17/20 [History] atorvaSTATin [Lipitor] 40 mg PO DAILY 04/17/20 [History] Acetaminophen 2 tab PO Q6HR PRN 04/09/21 [History] Loratadine 10 mg PO DAILY 04/09/21 [History] Past Medical History Cardiovascular History: Reports: Hypertension, Stents Other Cardiovascular History: NSTEMI Apr 3 stints placed Respiratory History: Reports: Pneumonia, Recurrent Genitourinary History: Reports: None Musculoskeletal History: Reports: None Neurological History: Reports: None Psychiatric History: Reports: None Endocrine/Metabolic History: Reports: None Hematologic History: Reports: None Immunologic History: Reports: None Oncologic (Cancer) History: Reports: None Dermatologic History: Reports: None - Infectious Disease History Infectious Disease History: Reports: Measles, Novel Coronavirus - Past Surgical History Head Surgeries/Procedures: Reports: None HEENT Surgical History: Reports: Tonsillectomy GI Surgical History: Reports: Appendectomy, Cholecystectomy Social & Family History - Family History Family Medical History: No Pertinent Family History - Caffeine Use Caffeine Use: Reports: Coffee, Soda ED ROS GENERAL - Review of Systems Review Of Systems: Comprehensive ROS is negative, except as noted in HPI. ED EXAM, GENERAL - Physical Exam Exam: See Below Exam Limited By: No Limitations General Appearance: Alert, No Apparent Distress Eye Exam: Bilateral Eye: EOMI Ears: Normal External Exam, Normal TMs Nose: Normal Inspection Throat/Mouth: Normal Inspection Head: Atraumatic, Normocephalic, Sinus Tenderness Neck: Normal Inspection Respiratory/Chest: No Respiratory Distress, Lungs Clear, Normal Breath Sounds Cardiovascular: Normal Peripheral Pulses, Regular Rate, Rhythm GI/Abdominal: Normal Bowel Sounds, Soft Back Exam: Normal Inspection Extremities: Normal Inspection Neurological: Alert, Oriented, Normal Cognition Psychiatric: Normal Affect, Normal Mood Skin Exam: Warm, Dry, Intact, Normal Color, No Rash Course - Vital Signs Last Recorded V/S: Last Vital Signs Temp 100.8 F H 04/09/21 19:18 Pulse 88 04/09/21 19:18 Resp 20 04/09/21 19:18 BP 136/70 04/09/21 19:18 Pulse Ox 96 04/09/21 19:18 - Orders/Labs/Meds Orders: Active Orders 24 hr Category Date Time Status CULTURE STREP A CONFIRMATION [RM] Stat Lab 04/09/21 20:09 Results STREP SCRN A RAPID W CULT CONF [RM] Stat Lab 04/09/21 20:09 Results Labs: Laboratory Tests 04/09/21 Range/Units 19:12 Influenza Type A RNA Negative (NEGATIVE) Influenza Type B RNA Negative (NEGATIVE) SARS-CoV-2 RNA (YANCY) Negative (NEGATIVE) Meds: Medications Discontinued Medications Generic Name Dose Route Start Last Admin Trade Name [place]ney PRN Reason Stop Dose Admin Azithromycin 500 mg 04/09/21 20:41 04/09/21 20:55 Azithromycin 250 Mg Tab PO 04/09/21 20:42 500 mg ONETIME ONE Administration Departure - Departure Time of Disposition: 20:41 Disposition: Home, Self-Care 01 Condition: Good Clinical Impression: Sinusitis Qualifiers: Sinusitis location: maxillary Chronicity: acute Recurrence: non-recurrent Qualified Code(s): J01.00 - Acute maxillary sinusitis, unspecified - Discharge Information *PRESCRIPTION DRUG MONITORING PROGRAM REVIEWED*: No *COPY OF PRESCRIPTION DRUG MONITORING REPORT IN PATIENT VALERIE: No Instructions: Sinusitis, Adult, [id number] Forms: ED Department Discharge Additional Instructions: humidifier over the counter cough and cold medication per label instructions fluids tylenol 500mg every 4 hours as needed for fever/ discomfort clinic follow up next week if not improving azithromycin 250mg every day x 4 days Sepsis Event Note (ED) - Focused Exam Vital Signs: Vital Signs Temp Pulse Resp BP Pulse Ox 04/09/21 19:18 100.8 F H 88 20 136/70 96 - My Orders Last 24 Hours: My Active Orders 04/09/21 20:09 CULTURE STREP A CONFIRMATION [RM] Stat STREP SCRN A RAPID W CULT CONF [] Stat - Assessment/Plan Last 24 Hours: My Active Orders 04/09/21 20:09 CULTURE STREP A CONFIRMATION [RM] Stat STREP SCRN A RAPID W CULT CONF [] Stat
[2021-04-09] MEDS ORDERED: Azithromycin 250 MG Tab PO ONE (20:41)
== END 2021-04-09 21:00 | disposition home or self-care (01) ==
LOC: DL.ED 18:54
DX: J01.00 Acute maxillary sinusitis, unspecified (principal); Z88.0 Allergy status to penicillin; Z79.82 Long term (current) use of aspirin; Z79.02 Long term (current) use of antithrombotics/antiplatelets; Z79.899 Other long term (current) drug therapy; Z20.822 Contact with and (suspected) exposure to COVID-19
CPT/HCPCS: 0240U; 87081; 87430; 99283; A9270

== ENCOUNTER 2021-06-14 15:43 | Emergency (ER) | payer BC, OTHER ==
[2021-06-14 16:38] LABS: CORONAVIRUS COVID-19 NAA NEGATIVE (NEGATIVE); RESPIRATORY SYNCYTIAL VIR NAA NEGATIVE (NEGATIVE)
[2021-06-14 16:52] VITALS: BP 135/84; PULSE 68
[2021-06-14] MEDS ORDERED: Levofloxacin 500 MG Tab PO ONE (16:52)
== END 2021-06-14 17:05 | disposition home or self-care (01) ==
LOC: DL.ED 15:43
DX: J01.00 Acute maxillary sinusitis, unspecified (principal); I10 Essential (primary) hypertension; I25.2 Old myocardial infarction; Z88.0 Allergy status to penicillin; Z79.82 Long term (current) use of aspirin; Z79.899 Other long term (current) drug therapy; Z79.02 Long term (current) use of antithrombotics/antiplatelets; Z20.822 Contact with and (suspected) exposure to COVID-19
CPT/HCPCS: 0241U; 99284; A9270

== ENCOUNTER 2022-06-23 07:35 | Emergency (ER) | payer BC, OTHER ==
[2022-06-23 07:51] VITALS: PULSE 93
[2022-06-23 08:45] VITALS: BP 127/92
== END 2022-06-23 08:44 | disposition home or self-care (01) ==
LOC: DL.ED 07:35
DX: S22.31XA Fracture of one rib, right side, initial encounter for closed fracture (principal); I10 Essential (primary) hypertension; I25.2 Old myocardial infarction; Z86.16 Personal history of COVID-19; Z88.0 Allergy status to penicillin; Z79.82 Long term (current) use of aspirin; Z79.899 Other long term (current) drug therapy; Z79.02 Long term (current) use of antithrombotics/antiplatelets; W19.XXXA Unspecified fall, initial encounter; Y99.0 Civilian activity done for income or pay
CPT/HCPCS: 71101-RT; 73110-RT; 99283

== ENCOUNTER 2022-07-18 21:32 | Emergency (ER) | payer OTHER, BC ==
[2022-07-18 22:16] VITALS: BP 123/85; PULSE 70
== END 2022-07-18 22:12 | disposition home or self-care (01) ==
LOC: DL.ED 21:32
DX: M25.531 Pain in right wrist (principal); I10 Essential (primary) hypertension; I25.2 Old myocardial infarction; Z86.16 Personal history of COVID-19; Z88.0 Allergy status to penicillin; Z79.82 Long term (current) use of aspirin; Z79.02 Long term (current) use of antithrombotics/antiplatelets; Z79.899 Other long term (current) drug therapy
CPT/HCPCS: 99282

== ENCOUNTER 2023-02-09 05:01 | Emergency (ER) | payer BC, OTHER ==
[2023-02-09] MEDS: Aspirin 81 MG Tab.Chew PO ONE (05:20)
[2023-02-09 05:27] LABS: BASOPHILS PERCENT AUTO 0.2 % (0.0-1.0); EOSINOPHILS PERCENT AUTO 2.7 % (1.0-3.0); HEMATOCRIT 46.5 % (40.0-54.0); HEMOGLOBIN 16.6 g/dL (14.0-18.0); LYMPHOCYTES PERCENT AUTO 35.9 % (20.5-50.1); MEAN CORPUSCULAR HEMOGLOBIN 31.7 pg (27.0-34.0); MEAN CORPUSCULAR HGB CONC 35.7 g/dL (33.0-35.0); MEAN CORPUSCULAR VOLUME 88.7 fL (80-100); MONOCYTES PERCENT AUTO 13.6 % (2-8); NEUTROPHILS PERCENT AUTO 47.6 % (42.2-75.2); PLATELET COUNT,PLT 250 10^3/uL (150-450); RED BLOOD CELL COUNT 5.24 10^6/uL (4.6-6.2); WHITE BLOOD CELL COUNT,WBC 8.6 10^3/uL (5.0-10.0)
[2023-02-09 05:37] LABS: A/G RATIO 1.2; ALANINE AMINOTRANSFERASE,ALT 46 U/L (16-63); ALBUMIN 3.9 g/dL (3.4-5.0); ALKALINE PHOSPHATASE 60 U/L (46-116); ANION GAP 14.6 mEq/L (7-13); ASPARTATE AMNIOTRANSFERASE,AST 23 U/L (15-37); BILIRUBIN TOTAL 0.8 mg/dL (0.2-1.0); BLOOD UREA NITROGEN,BUN 24 mg/dL (7-18); BUN/CREATININE RATIO 16.3 (No establ ref range); CARBON DIOXIDE,CO2 26 mmol/L (21-32); CHLORIDE,CL 105 mmol/L (98-107); CREATININE 1.47 mg/dL (0.70-1.30); EST CRCL DRUG DOSING (CG) 45.32 mL/min; ESTIMATED GFR 54 mL/min (>=60); ETHANOL BLOOD MEDICAL < 3 mg/dL (0); GLUCOSE RANDOM 97 mg/dL (70-99); LIPASE 34 U/L (16-77); POTASSIUM,K 3.6 mmol/L (3.5-5.1); PROTEIN TOTAL,TP 7.1 g/dL (6.4-8.2); SODIUM,NA 142 mmol/L (136-145)
[2023-02-09 05:38] LABS: LACTIC ACID 1.1 mmol/L (0.4-2.0)
[2023-02-09 05:39] LABS: PROTHROMBIN TIME 10.5 SEC (9.0-12.0); PTT,PARTIAL THROMBOPLSTIN TIME 25.1 SEC (22.0-34.0)
[2023-02-09 05:50] LABS: B-TYPE NATRIURETIC PEPTIDE,BNP 27 pg/ml (0-100)
[2023-02-09] MEDS: Heparin Sodium 5,000 Units/ML Vial IVPUSH ONE (06:53)
[2023-02-09] MEDS: Heparin Sodium/0.45% NaCl 25,000 UNITS/500 ML BAG IV SCH (06:59)
[2023-02-09 11:06] VITALS: PULSE 47
[2023-02-09 11:08] VITALS: BP 126/81
== END 2023-02-09 11:15 ==
LOC: DL.ED 05:01
DX: I25.10 Atherosclerotic heart disease of native coronary artery without angina pectoris (principal); I49.5 Sick sinus syndrome; I10 Essential (primary) hypertension; J45.909 Unspecified asthma, uncomplicated; E78.5 Hyperlipidemia, unspecified; I25.2 Old myocardial infarction; Z86.16 Personal history of COVID-19; Z88.0 Allergy status to penicillin; Z79.82 Long term (current) use of aspirin; Z79.899 Other long term (current) drug therapy
CPT/HCPCS: 36415; 71045; 80053; 80307; 83605; 83690; 83880; 84484; 85025; 85379; 85610; 85730; 93005; 96365; 96366; 99285; A9270; J1644; 93010

== ENCOUNTER 2023-03-30 22:03 | Emergency (ER) | payer BC, OTHER ==
[2023-03-30] MEDS ORDERED: Benzonatate 100 MG Cap PO ONE (22:04)
[2023-03-30 22:16] VITALS: BP 147/99; PULSE 90
[2023-03-30] MEDS ORDERED: Sodium Chloride 0.9% 10 ML Syringe FLUSH PRN (22:25)
[2023-03-30 22:40] LABS: BASOPHILS PERCENT AUTO 0.3 % (0.0-1.0); EOSINOPHILS PERCENT AUTO 1.9 % (1.0-3.0); HEMATOCRIT 42.8 % (40.0-54.0); HEMOGLOBIN 13.8 g/dL (14.0-18.0); LYMPHOCYTES PERCENT AUTO 8.9 % (20.5-50.1); MEAN CORPUSCULAR HEMOGLOBIN 28.2 pg (27.0-34.0); MEAN CORPUSCULAR HGB CONC 32.2 g/dL (33.0-35.0); MEAN CORPUSCULAR VOLUME 87.5 fL (80-100); NEUTROPHILS PERCENT AUTO 79.9 % (42.2-75.2); PLATELET COUNT,PLT 281 10^3/uL (150-450); RED BLOOD CELL COUNT 4.89 10^6/uL (4.6-6.2); WHITE BLOOD CELL COUNT,WBC 10.2 10^3/uL (5.0-10.0)
[2023-03-30 22:56] LABS: A/G RATIO 0.9; ALBUMIN 3.5 g/dL (3.4-5.0); ANION GAP 11.7 mEq/L (7-13); BILIRUBIN TOTAL 0.4 mg/dL (0.2-1.0); BUN/CREATININE RATIO 11.4 (No establ ref range); CALCIUM 9.1 mg/dL (8.5-10.1); CREATININE 1.32 mg/dL (0.70-1.30); EST CRCL DRUG DOSING (CG) 58.02 mL/min; POTASSIUM,K 3.7 mmol/L (3.5-5.1); PROTEIN TOTAL,TP 7.3 g/dL (6.4-8.2)
[2023-03-30 23:12] LABS: INFLUENZA A NAA NEGATIVE (NEGATIVE); INFLUENZA B NAA NEGATIVE (NEGATIVE)
[2023-03-30 23:15] LABS: CORONAVIRUS COVID-19 NAA POSITIVE (NEGATIVE)
[2023-03-30] MEDS ORDERED: guaiFENesin/Dextromethorphan 100-10 MG/5 ML Soln 5 ML Cup PO ONE (23:15)
[2023-03-30] MEDS ORDERED: Benzonatate 100 MG Cap ONE (23:24)
== END 2023-03-30 23:30 | disposition home or self-care (01) ==
LOC: DL.ED 22:03
DX: U07.1 COVID-19 (principal); J06.9 Acute upper respiratory infection, unspecified; I10 Essential (primary) hypertension; I25.810 Atherosclerosis of coronary artery bypass graft(s) without angina pectoris; I25.2 Old myocardial infarction; E78.00 Pure hypercholesterolemia, unspecified; Z88.0 Allergy status to penicillin; Z79.82 Long term (current) use of aspirin; Z79.899 Other long term (current) drug therapy; Z90.49 Acquired absence of other specified parts of digestive tract; Z86.16 Personal history of COVID-19; Z87.891 Personal history of nicotine dependence
CPT/HCPCS: 0240U; 36415; 71046; 80053; 83880; 85025; 86140; 99284; A9270; J3490

== ENCOUNTER 2023-04-02 04:11 | Emergency (ER) | payer BC, OTHER ==
[2023-04-02 04:53] VITALS: BP 124/77; PULSE 85
[2023-04-02 05:17] LABS: HEMATOCRIT 44.4 % (40.0-54.0); HEMOGLOBIN 14.1 g/dL (14.0-18.0); MEAN CORPUSCULAR HEMOGLOBIN 27.9 pg (27.0-34.0); MEAN CORPUSCULAR HGB CONC 31.8 g/dL (33.0-35.0); MEAN CORPUSCULAR VOLUME 87.7 fL (80-100); PLATELET COUNT,PLT 236 10^3/uL (150-450); RED BLOOD CELL COUNT 5.06 10^6/uL (4.6-6.2); WHITE BLOOD CELL COUNT,WBC 4.8 10^3/uL (5.0-10.0)
[2023-04-02 05:25] LABS: A/G RATIO 0.8; ALBUMIN 3.3 g/dL (3.4-5.0); ANION GAP 11.4 mEq/L (7-13); BILIRUBIN TOTAL 0.3 mg/dL (0.2-1.0); BUN/CREATININE RATIO 16.4 (No establ ref range); CALCIUM 8.8 mg/dL (8.5-10.1); CREATININE 1.28 mg/dL (0.70-1.30); EST CRCL DRUG DOSING (CG) 52.05 mL/min; MAGNESIUM 1.9 mg/dL (1.8-2.4); POTASSIUM,K 3.4 mmol/L (3.5-5.1); PROTEIN TOTAL,TP 7.4 g/dL (6.4-8.2)
[2023-04-02 05:39] LABS: BASOPHILS PERCENT AUTO 0.4 % (0.0-1.0); EOSINOPHILS PERCENT AUTO 3.3 % (1.0-3.0); LYMPHOCYTES PERCENT AUTO 28.7 % (20.5-50.1); NEUTROPHILS PERCENT AUTO 46.6 % (42.2-75.2)
[2023-04-02 05:53] LABS: EOSINOPHILS PERCENT MAN 1 % (1-3); LYMPHOCYTES PERCENT MAN 25 % (20-50); MONOCYTES PERCENT MAN 15 % (2-8); SEG NEUTROPHILS PERCENT MAN 59 % (42-75)
== END 2023-04-02 06:37 | disposition home or self-care (01) ==
LOC: DL.ED 04:11
DX: U07.1 COVID-19 (principal); J12.82 Pneumonia due to coronavirus disease 2019; R04.2 Hemoptysis; I10 Essential (primary) hypertension; I25.810 Atherosclerosis of coronary artery bypass graft(s) without angina pectoris; I25.2 Old myocardial infarction; E78.00 Pure hypercholesterolemia, unspecified; E66.9 Obesity, unspecified; Z88.0 Allergy status to penicillin; Z79.82 Long term (current) use of aspirin; Z79.899 Other long term (current) drug therapy; Z86.16 Personal history of COVID-19; Z90.49 Acquired absence of other specified parts of digestive tract
CPT/HCPCS: 36415; 71045; 80053; 83735; 85025; 99284

== ENCOUNTER 2023-05-14 16:31 | Emergency (ER) | payer BC, OTHER ==
[2023-05-14 19:13] VITALS: BP 140/95; PULSE 72
== END 2023-05-14 19:19 | disposition home or self-care (01) ==
LOC: DL.ED 16:31
DX: R04.0 Epistaxis (principal); I25.810 Atherosclerosis of coronary artery bypass graft(s) without angina pectoris; I10 Essential (primary) hypertension; I25.2 Old myocardial infarction; E78.00 Pure hypercholesterolemia, unspecified; J45.909 Unspecified asthma, uncomplicated; E66.9 Obesity, unspecified; Z68.33 Body mass index [BMI] 33.0-33.9, adult; Z86.16 Personal history of COVID-19; Z88.0 Allergy status to penicillin; Z79.82 Long term (current) use of aspirin; Z79.899 Other long term (current) drug therapy; Z79.01 Long term (current) use of anticoagulants
CPT/HCPCS: 99283

== ENCOUNTER 2023-09-19 20:38 | Emergency (ER) | payer BC, OTHER ==
[2023-09-19 21:07] LABS: BASOPHILS PERCENT AUTO 0.3 % (0.0-1.0); EOSINOPHILS PERCENT AUTO 2.3 % (1.0-3.0); HEMATOCRIT 48.6 % (40.0-54.0); HEMOGLOBIN 16.6 g/dL (14.0-18.0); MEAN CORPUSCULAR HEMOGLOBIN 28.2 pg (27.0-34.0); MEAN CORPUSCULAR HGB CONC 34.2 g/dL (33.0-35.0); MEAN CORPUSCULAR VOLUME 82.5 fL (80-100); MONOCYTES PERCENT AUTO 12.5 % (2-8); NEUTROPHILS PERCENT AUTO 56.9 % (42.2-75.2); PLATELET COUNT,PLT 264 10^3/uL (150-450); RED BLOOD CELL COUNT 5.89 10^6/uL (4.6-6.2); WHITE BLOOD CELL COUNT,WBC 7.1 10^3/uL (5.0-10.0)
[2023-09-19 21:24] LABS: A/G RATIO 1.1; ALBUMIN 3.7 g/dL (3.4-5.0); ANION GAP 15.9 mEq/L (7-13); BILIRUBIN TOTAL 0.5 mg/dL (0.2-1.0); BUN/CREATININE RATIO 9.6 (No establ ref range); CREATININE 1.56 mg/dL (0.70-1.30); EST CRCL DRUG DOSING (CG) 42.16 mL/min; POTASSIUM,K 3.9 mmol/L (3.5-5.1); PROTEIN TOTAL,TP 7.2 g/dL (6.4-8.2)
[2023-09-19 21:43] LABS: CORONAVIRUS COVID-19 NAA NEGATIVE (NEGATIVE); INFLUENZA A NAA NEGATIVE (NEGATIVE); INFLUENZA B NAA NEGATIVE (NEGATIVE); RESPIRATORY SYNCYTIAL VIR NAA NEGATIVE (NEGATIVE)
[2023-09-19 22:21] VITALS: PULSE 58
[2023-09-19 22:23] VITALS: BP 146/105
[2023-09-19] MEDS: Dexamethasone 4 MG/ML SDV IM ONE (22:31)
== END 2023-09-19 22:50 | disposition home or self-care (01) ==
LOC: DL.ED 20:38
DX: J18.9 Pneumonia, unspecified organism (principal); N17.9 Acute kidney failure, unspecified; I10 Essential (primary) hypertension; E78.00 Pure hypercholesterolemia, unspecified; I25.10 Atherosclerotic heart disease of native coronary artery without angina pectoris; I25.2 Old myocardial infarction; Z88.0 Allergy status to penicillin; Z79.82 Long term (current) use of aspirin; Z79.51 Long term (current) use of inhaled steroids; Z79.01 Long term (current) use of anticoagulants; Z79.899 Other long term (current) drug therapy; Z95.5 Presence of coronary angioplasty implant and graft; Z86.16 Personal history of COVID-19; Z95.1 Presence of aortocoronary bypass graft; Z90.49 Acquired absence of other specified parts of digestive tract
CPT/HCPCS: 0241U; 36415; 71046; 80053; 85025; 87081; 87430; 96372; 99284; J1100

== ENCOUNTER 2024-03-05 00:18 | Emergency (ER) | payer BC, OTHER | END 2024-03-05 00:23 | disposition left against medical advice (07) | LOC: DL.ED 00:18 | DX: Z53.21 Procedure and treatment not carried out due to patient leaving prior to being seen by health care provider (principal) ==

== ENCOUNTER 2024-07-28 18:38 | Emergency (ER) | payer BC, OTHER ==
[2024-07-28] MEDS ORDERED: Sodium Chloride 0.9% 10 ML Syringe FLUSH PRN (18:40)
[2024-07-28 18:53] LABS: BASOPHILS PERCENT AUTO 0.1 % (0.0-1.0); EOSINOPHILS PERCENT AUTO 3.2 % (1.0-3.0); HEMATOCRIT 48.9 % (40.0-54.0); HEMOGLOBIN 16.7 g/dL (14.0-18.0); LYMPHOCYTES PERCENT AUTO 32.6 % (20.5-50.1); MEAN CORPUSCULAR HEMOGLOBIN 30.5 pg (27.0-34.0); MEAN CORPUSCULAR HGB CONC 34.2 g/dL (33.0-35.0); MEAN CORPUSCULAR VOLUME 89.2 fL (80-100); MONOCYTES PERCENT AUTO 11.8 % (2-8); NEUTROPHILS PERCENT AUTO 52.3 % (42.2-75.2); PLATELET COUNT,PLT 237 10^3/uL (150-450); RED BLOOD CELL COUNT 5.48 10^6/uL (4.6-6.2); WHITE BLOOD CELL COUNT,WBC 8.1 10^3/uL (5.0-10.0)
[2024-07-28 19:11] LABS: PROTHROMBIN TIME 10.4 SEC (9.0-12.0)
[2024-07-28 19:18] LABS: A/G RATIO 1.1; ALANINE AMINOTRANSFERASE,ALT 34 U/L (16-63); ALKALINE PHOSPHATASE 66 U/L (46-116); ANION GAP 11.4 mEq/L (7-13); ASPARTATE AMNIOTRANSFERASE,AST 22 U/L (15-37); BILIRUBIN TOTAL 0.7 mg/dL (0.2-1.0); BLOOD UREA NITROGEN,BUN 24 mg/dL (7-18); BUN/CREATININE RATIO 16.8 (No establ ref range); CALCIUM 9.6 mg/dL (8.5-10.1); CARBON DIOXIDE,CO2 26 mmol/L (21-32); CHLORIDE,CL 104 mmol/L (98-107); CREATININE 1.43 mg/dL (0.70-1.30); GLUCOSE RANDOM 102 mg/dL (70-99); LIPASE 44 U/L (16-77); MAGNESIUM 1.9 mg/dL (1.8-2.4); POTASSIUM,K 3.4 mmol/L (3.5-5.1); PROTEIN TOTAL,TP 7.6 g/dL (6.4-8.2); SODIUM,NA 138 mmol/L (136-145)
[2024-07-28 19:19] LABS: C-REACTIVE PROTEIN < 0.50 ng/dL (<=0.50); ESTIMATED GFR 55 mL/min (>=60)
[2024-07-28] MEDS: Aspirin 81 MG Tab.Chew PO ONE (19:20)
[2024-07-28] MEDS: Potassium Chloride 10 MEQ Tab.ER PO ONE (19:59)
[2024-07-28 21:24] VITALS: BP 134/90; PULSE 42
== END 2024-07-28 21:20 | disposition home or self-care (01) ==
LOC: DL.ED 18:38
DX: R07.9 Chest pain, unspecified (principal); E78.00 Pure hypercholesterolemia, unspecified; I10 Essential (primary) hypertension; J45.909 Unspecified asthma, uncomplicated; E66.9 Obesity, unspecified; I25.10 Atherosclerotic heart disease of native coronary artery without angina pectoris; Z88.0 Allergy status to penicillin; Z79.899 Other long term (current) drug therapy; Z86.16 Personal history of COVID-19; Z90.49 Acquired absence of other specified parts of digestive tract; Z68.35 Body mass index [BMI] 35.0-35.9, adult
CPT/HCPCS: 36415; 71045; 80053; 83690; 83735; 84484; 85025; 85610; 86140; 93005; 93010; 99284; A9270